=== PATIENT | female | born 1985 | race Caucasian/White ===

== ENCOUNTER → 2016-03-13 | Outpatient (CLI) | payer OTHER | LOC: YCFC.O 09:34 | PROVIDERS: ATTEND Nurse Practitioner Family | DX: J06.9 Acute upper respiratory infection, unspecified (principal) ==

== ENCOUNTER → 2016-08-15 | Outpatient (CLI) | payer OTHER | END | disposition home or self-care (01) | LOC: YCFC.O 10:26 | PROVIDERS: ATTEND Nurse Practitioner Family | DX: E06.3 Autoimmune thyroiditis (principal) ==

== ENCOUNTER → 2016-08-29 | Outpatient (CLI) | payer OTHER | END | disposition home or self-care (01) | LOC: YCFC.O 11:27 | PROVIDERS: ATTEND Nurse Practitioner Family | DX: R31.9 Hematuria, unspecified (principal); R30.0 Dysuria ==

== ENCOUNTER 2018-02-26 08:18 | Emergency (ER) | payer OTHER ==
[2018-02-26 08:43] VITALS: BP 158/125; TEMP 98.8; O2SAT 98
[2018-02-26] MEDS ORDERED: LIDOCAINE 1% 2 ML VIAL INJ ONE (08:46)
[2018-02-26] MEDS ORDERED: SULFA/TRIMETH 800/160 (DS) TAB 1 EA TAB PO ONE (08:54)
[2018-02-26] MEDS ORDERED: CIPROFLOXACIN 500 MG TAB PO ONE (08:54)
--- NOTE | 2018-02-26 08:58 | ED.PDOC ---
History of Present Illness - General Chief Complaint: Skin/Abrasion/Tear Stated Complaint: Skin irritation to R groin Time Seen by Provider: 02/26/18 08:32 Source: patient Exam Limitations: no limitations - History of Present Illness Timing/Duration: other - 2 days Severity: moderate Improving Factors: nothing Worsening Factors: nothing Associated Symptoms: denies symptoms Allergies/Adverse Reactions: Allergies Amoxicillin Allergy (Mild, Verified 02/26/18 08:34) Other Gives her a yeast infection. Codeine Allergy (Mild, Verified 02/26/18 08:34) Nausea Nausea and vomiting. Home Medications: Ambulatory Orders Bp Med 1 ea PO DAILY 02/26/18 Ciprofloxacin [Cipro] 500 mg PO BID #10 tab 02/26/18 Levothyroxine Sodium 150 mcg PO DAILY 02/26/18 Liothyronine Sodium 25 mcg PO DAILY 02/26/18 Sulfa/Trimeth 800/160 (Ds) Tab [Bactrim DS Tab] 1 ea PO BID #10 tab 02/26/18 Review of Systems - Review of Systems Constitutional: States: no symptoms reported EENTM: States: no symptoms reported Respiratory: States: no symptoms reported Cardiology: States: no symptoms reported Gastrointestinal/Abdominal: States: no symptoms reported Genitourinary: States: no symptoms reported Musculoskeletal: States: no symptoms reported Skin: States: see HPI Neurological: States: no symptoms reported Endocrine: States: no symptoms reported All other Systems: No Change from Baseline Past Medical History (General) - Patient Medical History Hx Stroke: No Hx Congestive Heart Failure: No Hx Hypertension: Yes Hx Thyroid Disease: Yes Hx Diabetes: No Surgical History: no surgical history - Vaccination History Hx Tetanus, Diphtheria Vaccination: Yes Hx Influenza Vaccination: No Hx Pneumococcal Vaccination: No - Social History Hx Tobacco Use: Yes Hx Alcohol Use: No - Female History Patient is a Female of Child Bearing Age (10 -59 yrs old): Yes Patient : No Family Medical History - Family History Mother Family History: No Known Living Status: Still Living Hx Family Hypertension: Yes Physical Exam - Physical Exam General Appearance: Alert, Comfortable, No apparent distress Eye Exam: bilateral normal Ears, Nose, Throat: hearing grossly normal Neck: full range of motion Respiratory: no respiratory distress, no accessory muscle use Cardiovascular/Chest: normal peripheral pulses, no edema Peripheral Pulses: radial,right: 2+, radial,left: 2+ Gastrointestinal/Abdominal: other - bese Rectal Exam: deferred Extremity: normal range of motion, normal inspection, no pedal edema, normal capillary refill 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 Comments: Vital Signs - 24 hr 02/26/18 08:24 Temperature 98.8 F Pulse Rate [ 95 H Right Radial] Respiratory 18 Rate Blood Pressure 158/125 [Left Arm] O2 Sat by Pulse 98 Oximetry Progress - Progress Progress: 02/26/18 08:56 the patient 32-year-old female presented to emergency room secondary to a small perineal abscess at 8:00. This does not appear to be a Bartholin's cyst. After risks and benefits were explained the patient did agree to proceed with incision and drainage. Surface was cleaned with alcohol swab and 2 cc of Xylocaine without epinephrine were used for local anesthetic. #15 blade was used to make a 1-1/2 cm incision over the apex of the abscess. Approximately 2 cc of pus were obtained. Sterile cotton tip swab was used to break up septations. Patient tolerated procedure well. She is being started on Bactrim and Cipro and will be on these for 5 days. She needs to take these with food prevent stomach upset. Wash 2-3 times daily with an antibacterial soap such as Dial. ER warnings were given. Departure - Departure Clinical Impression: Perineal abscess, superficial Disposition: Discharge to Home or Self Care Condition: Fair Departure Forms: ED Discharge - Pt. Copy, Patient Portal Self Enrollment Instructions: DI for Wound Infection Diet: diabetic diet Activity: increase activity as tolerated Referrals: Rosario Abebe NP [Primary Care Provider] - 1-2 Weeks Prescriptions: Ciprofloxacin [Cipro] 500 mg PO BID #10 tab Sulfa/Trimeth 800/160 (Ds) Tab [Bactrim DS Tab] 1 ea PO BID #10 tab Home Medications: Ambulatory Orders Bp Med 1 ea PO DAILY 02/26/18 Ciprofloxacin [Cipro] 500 mg PO BID #10 tab 02/26/18 Levothyroxine Sodium 150 mcg PO DAILY 02/26/18 Liothyronine Sodium 25 mcg PO DAILY 02/26/18 Sulfa/Trimeth 800/160 (Ds) Tab [Bactrim DS Tab] 1 ea PO BID #10 tab 02/26/18 Additional Instructions: the patient 32-year-old female presented to emergency room secondary to a small perineal abscess at 8:00. This does not appear to be a Bartholin's cyst. After risks and benefits were explained the patient did agree to proceed with incision and drainage. Surface was cleaned with alcohol swab and 2 cc of Xylocaine without epinephrine were used for local anesthetic. #15 blade was used to make a 1-1/2 cm incision over the apex of the abscess. Approximately 2 cc of pus were obtained. Sterile cotton tip swab was used to break up septations. Patient tolerated procedure well. She is being started on Bactrim and Cipro and will be on these for 5 days. She needs to take these with food prevent stomach upset. Wash 2-3 times daily with an antibacterial soap such as Dial. ER warnings were given.
== END 2018-02-26 08:48 | disposition home or self-care (01) ==
LOC: ER 08:18
DX: L02.215 Cutaneous abscess of perineum (principal); I10 Essential (primary) hypertension; E07.9 Disorder of thyroid, unspecified; Z87.891 Personal history of nicotine dependence; Z88.1 Allergy status to other antibiotic agents; Z88.5 Allergy status to narcotic agent